=== PATIENT | male | born 1990 ===

== ENCOUNTER 2017-08-15 11:18 | Emergency (ER) | payer BC ==
[~2017-08-15] VITALS: Ht 182.9 cm; Wt 99.5 kg
[2017-08-15 11:27] VITALS: Ht 182.9 cm; Wt 99.5 kg
[2017-08-15] MEDS ORDERED: ACETAMINOPHEN 325 MG TAB PO ONE (12:30)
[2017-08-15] MEDS ORDERED: FAMOTIDINE 20 MG TAB PO ONE (12:30)
[2017-08-15] MEDS ORDERED: LIDOCAINE/MYLANTA 40 ML BTL PO ONE (12:30)
[2017-08-15] MEDS ORDERED: RANI150T9 PO (13:28)
[2017-08-15] MEDS ORDERED: ACET500C5 PO (13:28)
[2017-08-15 13:51] VITALS: BP 116/75; PULSE 69; RESP 19; TEMP 98.1
--- NOTE | 2017-08-15 14:04 | ERD ---
ER Documentation Chief Complaint Chief Complaint AP WITH N/V/D AND FEVER SINCE MONDAY HPI 27-year-old male patient with no significant past medical history presents to the ED complaining of left-sided abdominal pain and nausea, vomiting and diarrhea that started 4 days ago. Patient reports that he drinks some red Gatorade. Patient has had a few episodes of nonbilious nonbloody vomiting and non-mucoid nonbloody diarrhea. Denies any chest pain, dysuria, urgency, frequency, hematuria, bloody stools, melena. ROS All systems reviewed and are negative except as per history of present illness. Medications Home Meds Active Scripts Ranitidine Hcl* (Zantac*) 150 Mg Tablet, 150 MG PO BID Y for EPIGASTRIC PAIN, # 30 TAB Prov:KALLIE TAVAREZ PA-C 08/15/17 Acetaminophen* (Tylophen*) 500 Mg Capsule, 1 CAP PO Q6H Y for PAIN AND OR ELEVATED TEMP, #20 CAP Prov:KALLIE TAVAREZ PA-C 08/15/17 Allergies Allergies: Coded Allergies: No Known Allergy (Unverified , 08/15/17) PMhx/Soc Medical and Surgical Hx: pt denies Medical Hx, pt denies Surgical Hx History of Surgery: No Anesthesia Reaction: No Hx Neurological Disorder: No Hx Respiratory Disorders: No Hx Cardiac Disorders: No Hx Psychiatric Problems: No Hx Miscellaneous Medical Probl: No Hx Alcohol Use: Yes (socially) Hx Substance Use: No (marijuana) Hx Tobacco Use: No Smoking Status: Never smoker Physical Exam Vitals Vital Signs Date Time Temp Pulse Resp B/P Pulse Ox O2 Delivery O2 Flow Rate FiO2 08/15/17 13:51 98.1 69 19 116/75 100 Room Air 08/15/17 11:27 98.5 79 18 128/87 99 Physical Exam Const: Sxk-wwb-zhehofkmd, well-nourished. In no acute distress. Head: Atraumatic, normocephalic Eyes: Normal Conjunctiva without injection. No purulent discharge. ENT: Normal external ear, nose. Moist oropharynx without tonsillar exudates. Non -erythematous pharynx. Uvula midline. No drooling. No trismus. Neck: No cervical midline tenderness. Full range of motion. No meningismus. No cervical lymphadenopathy. No JVD. Resp: Clear to auscultation bilaterally. No wheezing, rhonchi, rales, or crackles. No accessory muscle use. No retractions. Cardio: Regular rate and rhythm. No murmurs, rubs or gallops. Abd: Soft, nontender, non distended. Normal bowel sounds. No palpable masses. No rebound tenderness. No guarding. Negative McBurney's point. Negative psoas sign. Negative obturator sign. Skin: No petechiae or rashes Back: No midline tenderness. No CVA tenderness. Ext: No cyanosis, or edema. Neur: Awake and alert. Normal gait. Normal coordination. Psych: Normal Mood and Affect Results 24 hrs Current Medications Medications (Trade) Dose Ordered Sig/Jone Route PRN Reason Start Time Stop Time Status Last Admin Dose Admin Acetaminophen (Tylenol Tab) 650 mg ONCE ONCE PO 08/15/17 12:30 08/15/17 12:31 DC 08/15/17 12:29 Famotidine (Pepcid) 20 mg ONCE ONCE PO 08/15/17 12:30 08/15/17 12:31 DC 08/15/17 12:29 Miscellaneous Medication (Gi Cocktail (2)) 40 ml ONCE ONCE PO 08/15/17 12:30 08/15/17 12:31 DC 08/15/17 12:29 Procedures/MDM 27-year-old male patient with no significant past medical history presents to the ED complaining of abdominal pain, nausea, vomiting. Patient is afebrile and nontoxic-appearing. Patient has normal vital signs. Patient symptoms are likely secondary to viral etiology. Patient given GI cocktail, famotidine, Tylenol here in the ED with improvement of his symptoms. Differentials include gastritis, GERD, and viral gastroenteritis. Patient had excessive p.o. challenge. Patient did not vomit here in the ED. Low suspicion for testicular torsion, necrotizing colitis, peptic ulcer disease, cholecystitis, choledocholithiasis, cholangitis, pancreatitis, appendicitis, bowel obstruction , ileus, volvulus, nephrolithiasis, pyelonephritis, hepatitis, perforated viscus , diverticulitis, abdominal hernia, acute abdomen, mesenteric ischemia or other emergent conditions. Discharge medications: Ranitidine, Tylenol Follow up with primary care physician in 1-2 days for referral to solution manager. Instructed patient to return to the ED sooner for any worsening symptoms. Patient's questions were answered. Patient understood and agreed with discharge plan. Patient discharged stable. Departure Diagnosis: Primary Impression: Abdominal pain, vomiting, and diarrhea Condition: Stable Patient Instructions: Abdominal Pain, Diet, Vomiting Or Diarrhea [6Yr-Adult] Referrals: [facility] YOU HAVE RECEIVED A MEDICAL SCREENING EXAM AND THE RESULTS INDICATE THAT YOU DO NOT HAVE A CONDITION THAT REQUIRES URGENT TREATMENT IN THE EMERGENCY DEPARTMENT. FURTHER EVALUATION AND TREATMENT OF YOUR CONDITION CAN WAIT UNTIL YOU ARE SEEN IN YOUR DOCTORS OFFICE WITHIN THE NEXT 1-2 DAYS. IT IS YOUR RESPONSIBILITY TO MAKE AN APPOINTMENT FOR FOLOW-UP CARE. IF YOU HAVE A PRIMARY DOCTOR --you should call your primary doctor and schedule an appointment IF YOU DO NOT HAVE A PRIMARY DOCTOR YOU CAN CALL OUR PHYSICIAN REFERRAL HOTLINE AT IF YOU CAN NOT AFFORD TO SEE A PHYSICIAN YOU CAN CHOSE FROM THE FOLLOWING [facility] [address] [facility] [address] [facility] [employer] [address] [facility] [address] [facility] [address] [facility]. [facility]. [address] [facility]. [facility] YOU HAVE RECEIVED A MEDICAL SCREENING EXAM AND THE RESULTS INDICATE THAT YOU DO NOT HAVE A CONDITION THAT REQUIRES URGENT TREATMENT IN THE EMERGENCY DEPARTMENT. FURTHER EVALUATION AND TREATMENT OF YOUR CONDITION CAN WAIT UNTIL YOU ARE SEEN IN YOUR DOCTORS OFFICE WITHIN THE NEXT 1-2 DAYS. IT IS YOUR RESPONSIBILITY TO MAKE AN APPOINTMENT FOR FOLOW-UP CARE. IF YOU HAVE A PRIMARY DOCTOR --you should call your primary doctor and schedule and appointment IF YOU DO NOT HAVE A PRIMARY DOCTOR YOU CAN CALL OUR PHYSICIAN REFERRAL HOTLINE AT . IF YOU CAN NOT AFFORD TO SEE A PHYSICIAN YOU CAN CHOSE FROM THE FOLLOWING [facility] INSTITUTIONS: [facility] [id number] [place] [address] [facility] [address] [place] [address] [facility] + [address] [address] [facility] Additional Instructions: FOLLOW UP WITH YOUR PRIMARY CARE PHYSICIAN TOMORROW for reexamination of the abdomen. Return to this facility if you are not improving as expected - worsening vomiting, worsening abdominal pain, fever, bloody vomiting or diarrhea , etc. KALLIE TAVAREZ PA-C Aug 15, 2017 14:04 KALLIE TAVAREZ PA-C Aug 15, 2017 14:04
== END 2017-08-15 13:51 | disposition home or self-care (01) ==
LOC: FTE 11:18
DX: R10.9 Unspecified abdominal pain (principal); R11.10 Vomiting, unspecified; R19.7 Diarrhea, unspecified
CPT/HCPCS: Z7502; Z7610; 99283